=== PATIENT | female | born 1955 | race Caucasian/White ===

== ENCOUNTER 2023-09-25 16:14 | Emergency (ER) | payer BC, SELFPAY ==
[2023-09-25 16:16] VITALS: BP 157/86
--- NOTE | 2023-09-25 19:18 | ED.GENMED ---
Addendum entered and electronically signed by GAEL Muhammad 09/26/23 13:17:
Patient called in the prescription for oxycodone is not able to be filled at the current [facility] because they are not in stock, they recommend that you prescription be sent to [facility] in [place]. This medication was sent to [facility] as requested.
Original Note:
History of Present Illness
General
Chief Complaint: Back Pain
Source: patient
Exam Limitations: none
Time Seen by Provider: 09/25/23 18:54
Nursing documentation reviewed up to this point in time: agreed with
History of Present Illness
History of Present Illness:
Patient is a 68-year-old female who presents to the ER complaining of pain from her right back back into her right leg. She reports it started about a week ago but got very severe on Friday several days ago. She did see a nurse practitioner at
[facility] and was diagnosed with arthritis and likely a pinched nerve. She is scheduled for MRI on Friday, in 5 days. She was prescribed a steroid Dosepak for several days and believes they are 4 mg each. She took 2 of them today. She is also
taking gabapentin(100mg) and also taking ibuprofen. She has been taking her friend's tramadol which is not relieving her symptoms.
Pain is worse with standing on her right leg. She denies any injury. Denies any actual back pain. She denies any loss of bowel or bladder denies any weakness in the leg.
Review of Systems
Review of Systems
Allergies reviewed?: Yes
All Other Systems: ROS reviewed and negative except as documented in HPI and ROS
Constitutional: Reports no symptoms
Respiratory: Reports no symptoms
Cardiac: Reports no symptoms
ABD/GI: Reports no symptoms
Skin: Reports no symptoms
Neurological: Reports other ('shooting pain to right leg ' )
Psychiatric: Reports no symptoms
Phy Exam
General Physical Exam
General Presentation: no apparent distress
General age: appears stated age
General Skin: warm and dry
General Habitus: normal
General Mental: alert
General Hydration: appears well hydrated
Neurological Exam
Neurological Exam: alert, oriented x3, no motor deficits, no sensory deficits and other (Intact sensation to bilateral lower extremities normal sensation to right lower extremities normal dorsiflexion plantarflexion normal patellar reflexes
bilaterally)
Musculoskeletal Exam
Musculoskeletal Exam: other (No bony back tenderness)
Skin Exam
Skin Exam: normal color and warm/dry
Psychiatric Exam
Psychiatric Exam: normal mood/affect
Course
Orders/Labs/Results
Orders:
Orders
09/25/23 19:18
Dexamethasone Sod Phosphate [Decadron] 10 mg IM NOW STA
HYDROmorphone [Dilaudid] 1 mg IM NOW STA
Vital Signs
Initial and Last Documented VS:
Initial Vital Signs
Pulse Resp BP Pulse Ox
84 16 157/86 97
09/25/23 16:16 09/25/23 16:16 09/25/23 16:16 09/25/23 16:16
Last Documented Vital Signs
Temp Pulse Resp BP Pulse Ox
98.4 F 84 16 157/86 97
09/25/23 16:20 09/25/23 16:16 09/25/23 16:16 09/25/23 16:16 09/25/23 16:16
MDM/Problems Addressed
Differential Diagnosis Includes:
Not limited to sciatica
MDM/Problems Addressed:
Symptoms are consistent with sciatica. Patient was on very low-dose Medrol Dosepak for steroids without relief. Patient was given IM narcotic along with IM Decadron here in the ER feeling much better able to stand and bear weight on leg. She is
in no acute distress has a normal neurologic exam. Will DC with a stronger prescription of prednisone she is on gabapentin only 100 mg and does not feel any relief will give a stronger dose in addition only to take as needed a stronger prescription
for pain was sent to patient's pharmacy. She is getting an MRI in the next several days and does have outpatient Ortho follow-up with Bob.
*Critical Care Note
Total Time (30-74mins, 75-104mins- exclusive of procedures): Not Applicable
ED Attending Note
-
Portions of this chart may have been created with voice recognition software.� Occasional wrong word or��sound alike� substitutions may have occurred due to the inherent limitations of voice recognition software.
Discharge Plan
Departure
Patient Disposition: Home (Routine Discharge)
Date of Disposition: 09/25/23
Time of Disposition: 20:32
Patient with high blood pressure during this ER visit?: Yes
Condition: Fair
Covid-19: Not Applicable
Discharge Problem:
Sciatica
Instructions: Sciatica (DC), BLOOD PRESSURE
Prescriptions:
New
prednisone 10 mg Tablet
See Rx Instructions .ROUTE .COMPLEX Qty: 45 0RF
Rx Instructions:
Take By Mouth:
50 mg daily x3 days, 40 mg daily x3 days,
30 mg daily x3 days, 20 mg daily x3 days,
10 mg daily x3 days
gabapentin 300 mg capsule
300 mg PO TID PRN (Reason: pain) Qty: 14 0RF
oxycodone 5 mg capsule
5 mg PO Q6H PRN (Reason: Pain) Qty: 10 0RF
Referrals:
Eileen Cadena, DO [Family Provider] -
Activity Restrictions/Additional Instructions:
As discussed you were given a narcotic injection here in the ER along with prednisone(steroid) Stop your previous steroid prescription and start new steroid prescription tomorrow. You may take Tylenol for discomfort. A new prescription for
gabapentin 300 mg was sent to your pharmacy you may take only as needed. if needed only, a prescription for narcotics was sent to your pharmacy take only as directed. Narcotics will make you drowsy no driving or drug alcohol taking the medication.
In addition narcotics may make you constipated it is recommended they take [id number] stool softener. Follow-up with your orthopedic physician as scheduled and be sure to get your MRI as scheduled return to the ER if any worsening of symptoms
including worsening pain loss of bowel or bladder weakness lower extremities or any further concerns.
Interventions
Interventions:
*Risk Screen - Suicide Last Done: 09/25/23 18:37
*General Assessment Last Done: 09/25/23 16:16
*Neglect/Abuse Screening Last Done: 09/25/23 18:37
*ED COVID-19 Vaccine History Last Done: 09/25/23 16:16
ED-Musculoskeletal Assessment Last Done: 09/25/23 18:00
Discharge Date and Time
Print Language: CYMRO
[2023-09-25] MEDS: DILAUDID 1 MG IM (19:31)
[2023-09-25] MEDS: DECADRON 10 MG IM (19:34)
== END 2023-09-25 20:59 | disposition home or self-care (01) ==
LOC: EMR 16:14
PROVIDERS: EMERGENCY PHYSICIAN Emergency Medicine; FAMILY PHYSICIAN Family Medicine
DX: M54.41 Lumbago with sciatica, right side (principal); M79.604 Pain in right leg; R03.0 Elevated blood-pressure reading, without diagnosis of hypertension; M19.90 Unspecified osteoarthritis, unspecified site
CPT/HCPCS: 99284; 96372 ×2

== ENCOUNTER → 2023-12-09 13:44 | Outpatient (REF) | payer BC, SELFPAY | LOC: HWRAD 13:44 | PROVIDERS: ATTENDING PHYSICIAN Family Medicine | DX: M85.80 Other specified disorders of bone density and structure, unspecified site (principal) | CPT/HCPCS: 77080 ==

== ENCOUNTER 2024-04-06 16:55 | Emergency (ER) | payer BC, SELFPAY ==
[2024-04-06 16:57] VITALS: BP 162/88
[2024-04-06 17:00] VITALS: BP 162/88
[2024-04-06 17:04] VITALS: BMI 27.2
[2024-04-06 17:18] LABS: % Basophils 1.2 % (0-2); % Eosinophils 2.3 % (0-6); % Immature Granulocytes 0.2 % (0-0.5); % Lymphocytes 42.2 % (20.5-51.1); % Monocytes 8.7 % (1.7-9.3); % Neutrophils 45.4 % (42.2-75.2); Absolute Basophils 0.1 10^3/uL (0-0.2); Absolute Eosinophils 0.2 10^3/uL (0-0.7); Absolute Lymphocytes 2.7 10^3/uL (1.2-3.4); Absolute Monocytes 0.6 10^3/uL (0.1-0.6); Absolute Neutrophils 2.9 10^3/uL (1.4-6.5); Hematocrit 39.7 % (37.0-47.0); Hemoglobin 13.5 g/dL (12.0-16.0); Mean Corpuscular Hgb 28.5 pg (27.0-31.0); Mean Corpuscular Volume 83.9 fL (81.0-99.0); Mean Platelet Volume 9.4 fL (7.4-10.4); Nucleated Red Blood Cells % 0 %; Platelet Count 307 10^3/uL (130-400); Red Blood Cell Count 4.73 10^6/uL (4.20-5.40); Red Cell Dist. Width 13.3 % (11.5-14.5); White Blood Cell Count 6.5 10^3/uL (4.8-10.8)
[2024-04-06 18:00] VITALS: BP 132/68
[2024-04-06 18:02] LABS: ALT (SGPT) 23 U/L (0-35); AST (SGOT) 25 U/L (14-36); Albumin 4.5 g/dl (3.5-5.0); Alkaline Phosphatase 80 U/L (38-126); Blood Urea Nitrogen 19 mg/dl (7-17); Calcium 9.7 mg/dl (8.4-10.2); Carbon Dioxide 28 mmol/L (22-30); Chloride 99 mmol/L (98-107); Estimated Creatinine Clearance 54 ml/min; Glucose 104 mg/dl (70-99); Potassium 3.7 mmol/L (3.5-5.1); Sodium 131 mmol/L (135-145); Total Bilirubin 1.1 mg/dl (0.2-1.3); Total Protein 6.5 g/dl (6.3-8.2); eGFR > 60.00
--- NOTE | 2024-04-06 19:05 | ED.GENMED ---
History of Present Illness
General
Chief Complaint: Heart Rate Problem
Source: patient
Exam Limitations: none
Time Seen by Provider: 04/06/24 17:47
Nursing documentation reviewed up to this point in time: agreed with
History of Present Illness
History of Present Illness:
69-year-old female presenting to the emergency department today with concerns of palpitations started when sitting down at home. She placed her watch on and noticed that her heart rate was fluctuating between 130s to 150s lasted roughly 45 minutes
called EMS when her symptoms seem to improve heart rate then in the 80s. Was given some fluids en route via EMS. Otherwise feels well at this point no chest pain or shortness of breath. Did have a very brief episode of chest discomfort 1 week ago
described as achiness with some nausea associated. She claims that she has been very stressed recently denies any recent trauma surgery immobilization any known history of heart disease or arrhythmias.
Review of Systems
Review of Systems
Allergies reviewed?: Yes
All Other Systems: ROS reviewed and negative except as documented in HPI and ROS
Phy Exam
Physical Exam
Physical Exam:
GENERAL: Alert , in no apparent distress
EYE: pupils equal and reactive
NECK: Supple, no significant adenopathy.
ENT: o/p clr, mmm.
CARDIAC: Regular rate and rhythm .
LUNGS: Clear breath sounds bilaterally, no acute respiratory distress, no wheezes/rales/rhonchi
ABDOMEN: Soft, without focal tenderness, no r/g, no cvat
NEUROLOGICAL: Alert and oriented, no focal neuro deficits
SKIN: Warm and dry, skin intact.
MUSCULOSKELETAL: No edema, well perfused.
PSYCH: Normal and appropriate interaction.
Course
Orders/Labs/Results
Orders:
Orders
04/06/24 17:06
Complete Blood Count/With Diff Urgent
04/06/24 17:30
Comprehensive Metabolic Panel Urgent
04/06/24 17:48
EKG [Electrocardiogram (*1)] Urgent
Reason for Study: Palpitations
EKG- Treatment ONCE
04/06/24 18:59
Chest [CR Chest - 2 Views ] Urgent
Comment:
Reason For Exam: cp
04/06/24 19:55
Troponin I Urgent
Abnormal Lab Results
04/06/24
17:30
Sodium 131 L mmol/L
(135-145)
BUN 19 H mg/dl
(7-17)
Glucose 104 H mg/dl
(70-99)
04/06/24 17:06
04/06/24 17:30
Vital Signs
Initial and Last Documented VS:
Initial Vital Signs
Temp Pulse Resp BP Pulse Ox
98.2 F 85 12 162/88 100
04/06/24 16:57 04/06/24 16:57 04/06/24 16:57 04/06/24 16:57 04/06/24 16:57
Last Documented Vital Signs
Temp Pulse Resp BP Pulse Ox
98.2 F 73 17 139/80 96
04/06/24 16:57 04/06/24 20:15 04/06/24 20:15 04/06/24 20:00 04/06/24 18:00
MDM/Problems Addressed
MDM/Problems Addressed:
69-year-old female presenting to the emergency department today with concerns of palpitations prior to arrival. Initial heart rate in the 130s to 150s according to her watch. Heart rate currently in the 70s to 80s normal sinus rhythm no emergent
findings. Labs unremarkable other than slightly low sodium level. BUN to creatinine ratio slightly elevated. No additional acute abnormalities. Otherwise stable for outpatient follow-up on the monitor here for multiple hours without any
arrhythmia. Advised for close cardiology follow-up. Return precautions given.
*Critical Care Note
Total Time (30-74mins, 75-104mins- exclusive of procedures): Not Applicable
ED Attending Note
-
Portions of this chart may have been created with voice recognition software.� Occasional wrong word or��sound alike� substitutions may have occurred due to the inherent limitations of voice recognition software.
Discharge Plan
Departure
Patient Disposition: Home (Routine Discharge)
Date of Disposition: 04/06/24
Time of Disposition: 21:01
Patient with high blood pressure during this ER visit?: No
Condition: Good
Covid-19: Not Applicable
Discharge Problem:
Palpitations
Instructions: Chest Pain CBC Follow Up
Prescriptions:
No Action
prednisone 10 mg Tablet
See Rx Instructions .ROUTE .COMPLEX Qty: 45 0RF
Rx Instructions:
Take By Mouth:
50 mg daily x3 days, 40 mg daily x3 days,
30 mg daily x3 days, 20 mg daily x3 days,
10 mg daily x3 days
gabapentin 300 mg capsule
300 mg PO TID PRN (Reason: pain) Qty: 14 0RF
oxycodone 5 mg capsule
5 mg PO Q6H PRN (Reason: Pain) Qty: 10 0RF
oxycodone 5 mg capsule
5 mg PO TID PRN (Reason: Pain) Qty: 10 0RF
Referrals:
Eileen Cadena, DO [Family Provider] -
Activity Restrictions/Additional Instructions:
You came to the emergency department today with concerns of palpitations. Here you had a reassuring assessment. Please follow closely with parts salesperson. Return to the emergency department for any worsening, new or concerning symptoms.
Interventions
Interventions:
*Risk Screen - Suicide Last Done: 04/06/24 17:05
*General Assessment Last Done: 04/06/24 17:05
*Neglect/Abuse Screening Last Done: 04/06/24 17:05
ED- Fall Risk Assessment Last Done: 04/06/24 17:08
*ED COVID-19 Vaccine History Last Done: 04/06/24 17:05
ED- Cardiac Assessment Last Done: 04/06/24 17:08
ED- Pulmonary Assessment Last Done: 04/06/24 17:08
Discharge Date and Time
Print Language: YI
[2024-04-06 20:00] VITALS: BP 139/80
[2024-04-06 20:31] LABS: Troponin I < 0.012 ng/ml
== END 2024-04-06 21:40 | disposition home or self-care (01) ==
LOC: EMR 16:55
PROVIDERS: EMERGENCY PHYSICIAN Emergency Medicine; FAMILY PHYSICIAN Family Medicine
DX: R00.2 Palpitations (principal)
CPT/HCPCS: 99285; 71046; 80053; 84484; 85025; 93005

== ENCOUNTER → 2024-04-21 14:24 | Outpatient (REF) | payer BC, SELFPAY | LOC: RCS 14:24 | PROVIDERS: ATTENDING PHYSICIAN Internal Medicine Cardiovascular Disease; FAMILY PHYSICIAN Family Medicine | DX: I10 Essential (primary) hypertension (principal); R00.2 Palpitations; R55 Syncope and collapse | CPT/HCPCS: 93306 ==

== ENCOUNTER 2024-05-12 20:15 | Emergency (ER) | payer BC, SELFPAY ==
[2024-05-12 20:39] VITALS: BP 173/96
[2024-05-12 20:52] VITALS: BP 170/101; BMI 25.8
--- NOTE | 2024-05-12 20:52 | EDRN ---
Pt was here 2/ for rapid HR. Pt was recommended to see custom home installer. Pt had an echo done and holter monitor x 1 week. Pt informed she has a weak valve, Pt instructed to start taking metoprolol 25mg daily. 1 week later, pt did not feel any
different, called the office and was informed she was taking a mild beta sasha 'and that's it.' Pt says this is second time she has noted elevated HR, felt little lightheaded. This time, pt was nauseous, in bed then her chest started pounding 'I
wasn't doing anything.' Pt had 1.5 cups coffee this morning. Pt works out, was recommended to use compression socks. Today is first time she did that which is only different thing she has done. No recent travel, hx blood clots.
[2024-05-12 21:00] VITALS: BP 130/79
[2024-05-12 21:18] LABS: % Basophils 0.8 % (0-2); % Eosinophils 1.5 % (0-6); % Immature Granulocytes 0.3 % (0-0.5); % Lymphocytes 33.9 % (20.5-51.1); % Monocytes 7.2 % (1.7-9.3); % Neutrophils 56.3 % (42.2-75.2); Absolute Basophils 0.1 10^3/uL (0-0.2); Absolute Eosinophils 0.1 10^3/uL (0-0.7); Absolute Lymphocytes 2.4 10^3/uL (1.2-3.4); Absolute Monocytes 0.5 10^3/uL (0.1-0.6); Hemoglobin 14.2 g/dL (12.0-16.0); Mean Corp Hgb Conc. 34.6 g/dL (33.0-37.0); Mean Corpuscular Hgb 28.8 pg (27.0-31.0); Mean Corpuscular Volume 83.2 fL (81.0-99.0); Mean Platelet Volume 9.1 fL (7.4-10.4); Nucleated Red Blood Cells % 0 %; Platelet Count 346 10^3/uL (130-400); Red Blood Cell Count 4.93 10^6/uL (4.20-5.40); Red Cell Dist. Width 13.6 % (11.5-14.5); White Blood Cell Count 7.1 10^3/uL (4.8-10.8)
[2024-05-12 21:43] LABS: Blood Urea Nitrogen 21 mg/dl (7-17); Calcium 10.2 mg/dl (8.4-10.2); Carbon Dioxide 23 mmol/L (22-30); Chloride 101 mmol/L (98-107); Estimated Creatinine Clearance 53 ml/min; Glucose 112 mg/dl (70-99); Sodium 135 mmol/L (135-145); eGFR > 60.00
[2024-05-12 22:00] VITALS: BP 129/78
[2024-05-12 22:04] LABS: TSH Reflex To Free T4 3.29 uIU/ml (0.47-4.68)
--- NOTE | 2024-05-12 22:46 | ED.GENMED ---
History of Present Illness
General
Chief Complaint: Heart Rate Problem
Source: patient and family
Time Seen by Provider: 05/12/24 20:51
History of Present Illness
History of Present Illness:
69-year-old female who presents after she developed palpitations at home. Patient states she was not doing anything in particular started feel palpitations. The patient states that this is the second time this has happened. She has seen
cardiology who did an outpatient echocardiogram and Holter monitor. The patient was then advised to start metoprolol which she did and follow-up in several months. Patient denies any chest pain. She does feel slightly improved on my assessment.
No recent travel. No leg swelling. No leg pain.
Past History
Past History
ED Past Medical History: None
Phy Exam
Physical Exam
Physical Exam:
CONSTITUTIONAL Patient alert and oriented to person, place and time. Well-appearing. Vital signs reviewed.
HEAD atraumatic, normocephalic.
EYES eyelids normal to inspection, Extraocular muscles intact, Conjunctiva normal, Sclera normal.
NECK normal range of motion, Trachea midline, no jugular venous distention.
RESPIRATORY CHEST No respiratory distress noted, Chest expansion equal, Bilateral breath sounds clear.
CARDIOVASCULAR regular rate and rhythm, Heart sounds normal.
ABDOMEN abdomen nontender, Bowel sounds normal. No distention.
BACK normal inspection, no obvious deformities
UPPER EXTREMITY range of motion normal, Motor strength normal, no cyanosis, no edema.
LOWER EXTREMITY range of motion normal, Motor strength normal, no cyanosis, no edema.
NEURO Speech normal, No focal motor deficits, Irene coma scale 15, Memory normal, Cranial Nerves intact to screening exam.
SKIN skin warm, dry, and normal in color.
Course
Orders/Labs/Results
Orders:
Orders
05/12/24 20:16
ECG [Electrocardiogram (*1)] Urgent
Reason for Study: Palpitations
EKG- Treatment ONCE
05/12/24 20:59
EKG [Electrocardiogram (*1)] Urgent
Reason for Study: Bradycardia / Tachycardia
EKG- Treatment ONCE
05/12/24 21:13
Basic Metabolic Panel Urgent
Complete Blood Count/With Diff Urgent
TSH Reflex To Free T4 Urgent
05/12/24 22:33
Potassium Urgent
Abnormal Lab Results
05/12/24
21:13
BUN 21 H mg/dl
(7-17)
Glucose 112 H mg/dl
(70-99)
05/12/24 21:13
Vital Signs
Initial and Last Documented VS:
Initial Vital Signs
Temp Pulse Resp BP Pulse Ox
98.3 F 144 18 173/96 99
05/12/24 20:39 05/12/24 20:39 05/12/24 20:39 05/12/24 20:39 05/12/24 20:39
Last Documented Vital Signs
Temp Pulse Resp BP Pulse Ox
98.3 F 77 18 129/78 99
05/12/24 20:39 05/12/24 22:00 05/12/24 22:00 05/12/24 22:00 05/12/24 21:00
MDM/Problems Addressed
MDM/Problems Addressed:
Palpitations, atrial tachycardia
*Pulse Oximetry
Patient hypoxic: no
*EKG
Interpreted by ED Provider?: Yes
Interpretation: abnormal
Rate: tachycardiac
Rhythm: other (Atrial tachycardia versus a flutter 2-1)
Ischemia: non-specific ST changes
*Assessment Counselor Interpretation
Rate: normal
Interpretation: normal
Rhythm: sinus
*Critical Care Note
Total Time (30-74mins, 75-104mins- exclusive of procedures): Not Applicable
Data Reviewed
Source: patient
Prescriptions/Medications Considered But Not Given:
Considered AV blockers but patient's heart rate was 80-90 on my assessment
Patient Management
Escalation/DeEscalation of care consider admission/obs:
Patient appears well feels better. Heart rate has been 80-90 on telemetry. EKG noted. Question atrial tachycardia. Will recommend outpatient follow-up with cardiology and continue metoprolol
ED Attending Note
-
Portions of this chart may have been created with voice recognition software.� Occasional wrong word or��sound alike� substitutions may have occurred due to the inherent limitations of voice recognition software.
Discharge Plan
Departure
Patient Disposition: Home (Routine Discharge)
Date of Disposition: 05/12/24
Time of Disposition: 22:50
Patient with high blood pressure during this ER visit?: No
Discharge Problem:
Palpitations
Instructions: Palpitations (DC)
Prescriptions:
No Action
metoprolol succinate 25 mg Tablet Extended Release 24 Hr
25 mg PO DAILY
Green Drink With Vitamins
1 PO DAILY
Rx Instructions:
1 scoop in 8 oz water
Seed
2 cap PO DAILY
collagen
1 PO DAILY
Rx Instructions:
1 scoop in 8 oz
Referrals:
Eileen Cadena, DO [Family Provider] -
Activity Restrictions/Additional Instructions:
Please follow-up with cardiology as planned. Return immediately for chest pain, shortness of breath, weakness of any kind or any other concerns. Please continue your metoprolol
Interventions
Interventions:
*Risk Screen - Suicide Last Done: 05/12/24 20:39
*General Assessment Last Done: 05/12/24 20:39
*Neglect/Abuse Screening Last Done: 05/12/24 20:39
*ED- Fall Risk Assessment Last Done: 05/12/24 22:35
*ED COVID-19 Vaccine History Last Done: 05/12/24 20:39
ED- Cardiac Assessment Last Done: 05/12/24 21:19
ED- Pulmonary Assessment Last Done: 05/12/24 21:19
Discharge Date and Time
Print Language: MONGOLIAN
[2024-05-12 22:52] LABS: Potassium 3.9 mmol/L (3.5-5.1)
== END 2024-05-12 23:05 | disposition home or self-care (01) ==
LOC: EMR 20:15
PROVIDERS: EMERGENCY PHYSICIAN Emergency Medicine; FAMILY PHYSICIAN Family Medicine
DX: R00.2 Palpitations (principal); I47.19 Other supraventricular tachycardia
CPT/HCPCS: 99283; 80048; 84132; 84443; 85025; 93005

== ENCOUNTER 2024-12-16 08:05 | Day surgery (SDC) | payer BC, SELFPAY ==
[2024-12-02 10:58] VITALS: BMI 24.5
[2024-12-02 11:18] LABS: Hematocrit 40.6 % (37.0-47.0); Hemoglobin 13.6 g/dL (12.0-16.0); Mean Corp Hgb Conc. 33.5 g/dL (33.0-37.0); Mean Corpuscular Volume 84.2 fL (81.0-99.0); Nucleated Red Blood Cells % 0 %; Platelet Count 324 10^3/uL (130-400); Red Cell Dist. Width 13.1 % (11.5-14.5)
[2024-12-02 11:39] LABS: INR 1.03; PT 14.0 Sec (11.4-14.6)
[2024-12-02 11:57] LABS: ALT (SGPT) 21 U/L (0-35); AST (SGOT) 24 U/L (14-36); Albumin 4.5 g/dl (3.5-5.0); Alkaline Phosphatase 69 U/L (38-126); Blood Urea Nitrogen 13 mg/dl (7-17); Calcium 9.4 mg/dl (8.4-10.2); Carbon Dioxide 28 mmol/L (22-30); Chloride 100 mmol/L (98-107); Estimated Creatinine Clearance 56 ml/min; Glucose 99 mg/dl (70-99); Magnesium 2.0 mg/dl (1.6-2.3); Potassium 4.3 mmol/L (3.5-5.1); Sodium 133 mmol/L (135-145); Total Protein 7.2 g/dl (6.3-8.2); eGFR > 60.00
[2024-12-16] VITALS (21 sets, daily range): BP systolic 107–155; BP diastolic 61–88; BMI 24.1
[2024-12-16 11:08] LABS: ACT-LR - POC 268 Seconds (116-155)
[2024-12-16 11:31] LABS: ACT-LR - POC 314 Seconds (116-155)
--- NOTE | 2024-12-16 12:04 | ITS.CL.ABL ---
[employer] - Ablation
Ablation
Procedure Report:
ELECTROPHYSIOLOGY ABLATION STUDY
DATE:: 12/16/2024�����������������������������REFERRING: Dr. Tony Powell, Dr. Dontrell Ware
INDICATION: Paroxysmal supraventricular tachycardia in the form of atrial fibrillation.� Also noted to have paroxysmal atrial tachycardia with ECG morphology suggesting typical atrial flutter. The P wave is somewhat broad and could be focal with
morphology near the CTI.
HISTORY: See H and P.��As above
ANTIARRHYTHMIC DRUG: Metoprolol
PRE-PROCEDURE RADHA: No atrial thrombus
PRESENTING RHYTHM: Sinus rhythm
'TIME-OUT':��called and confirmed.
SEDATION/ANESTHESIA:��provided via the anesthesia department using general anesthesia (LMA).
INTRAVENOUS/ARTERIAL ACCESS:
Right femoral venous - 8Fr
Left femoral venous - 8 Fr, 6 Fr
Ultrasound guidance for bilateral femoral vein access was utilized by me to obtain access with demonstration of normal anatomy
CHADS-VASC Score:
HAS-Bled Score
PROCEDURE:
1.��A decapolar CS catheter was placed within the CS for mapping and pacing.��This was also used as the reference catheter for the 3-D map. We proceeded to the PVI and posterior wall isolation first and performed empiric CTI flutter ablation with
radiofrequency energy at the annulus and PFA from the mid CTI back to the IVC as below. 100 mcg of nitroglycerin were given during the CTI ablation. We then performed aggressive EP study with stimulation and the patient was noninducible for any
other tachyarrhythmias. The CTI flutter ablation was performed somewhat septally given the patient's P wave morphology. There was no change in AV conduction.
2. The intracardiac ultrasound catheter was positioned in the RA to identify the FO for targeting of transseptal puncture, assist��in identification of the pulmonary vein ostia, monitoring pre and post ablation pulmonary vein flow velocities,
monitoring for 'bubble' formation during RF application as a sign of thermal injury,��and to monitor for pericardial effusion during mapping and ablation procedure.���Left atrial size, LV ejection fraction, and pulmonary vein flows were monitored
pre and post ablation procedure. The other valves were inspected and found to be free of significant regurgitation or stenosis.
3.��Half of the calculated heparin bolus was administered prior to the first transeptal puncture.��Transseptal puncture was performed to diagnose RA and LA pressure so that safety of LA mapping and ablation could be further assessed, and to access
the left atrium and pulmonary veins for mapping and ablation.��This entailed advancing an 10 Hebrew steerable with dilator into the superior vena cava and withdrawing both (monitoring intracardiac ultrasound, fluoroscopy and tip pressure) with the
tip oriented toward the atrial septum.��The fossa ovalis was engaged (indicated by sudden displacement of the sheath tip as well as tenting of the fossa seen on intracardiac ultrasound).��Left atrial access required a pass with the [place]rough
needle extended.��Left atrial catheter position was confirmed by pressure monitoring (RA mean pressure 1 mm Hg and LA mean presure 4 mm Hg) which was answered with a liter of hydration, LA saturation (99%),��as well as fluoroscopy.��The sheath was
advanced over the dilator and positioned in the left atrium.��This procedure was repeated for the Agilis sheath.��The remainder of the calculated heparin bolus was administered and heparin was
infused to maintain ACT at 300 -350 seconds throughout the case.
4.��RA pacing was performed via the proximal decapolar poles and LA pacing was performed via the distal decapolr poles.
5. A quadrapolar catheter was first positioned at the His position for His Bundle recording which was tagged via the 3-D Navex sytem, and then passed to the RVA for RV pacing and recording.
6. The lattice catheter was placed in each of the LIPV, LSPV, RSPV and the RIPV.��
7.��Next, a 3-D map was created using Navex.���A 3-D reconstructed CT image was compared to the 3-D Navex map to assist in anatomic interpretation, mapping and ablation.��The CT image and the NavX image were fused.
8. PVI was performed with wide circumferential lesions around the left and right veins rendering entrance and exit block in all 4 pulmonary veins. A posterior box lesion set with a roofline and floor line was performed connecting the left and
right vein lesion sets with additional lesions on the septum and the base of left atrial appendage on the appendage side of the ligament of Adrián. This rendered the posterior wall roof floor left atrium and pulmonary veins isolated with entrance
and exit block.
9. An RF line was also placed at the IVC-TVA isthmus to interrupt the potential typical atrial flutter circuit.��At the end of RF at this site, pacing from the lateral side of the line and the medial side of the line was performed to evaluate for
bidirectional block with intra isthmus conduction time of 142 ms. Given the P wave morphology on the patient's supraventricular tach arrhythmia suggesting either typical atrial flutter or a focal atrial tachycardia from near isthmus we performed
CTI flutter ablation from the tricuspid annulus back towards the IVC more towards the septal aspect of the eustachian ridge with an RF lesion at the annulus and IV nitroglycerin with PFA lesions connecting the RF lesion back towards the IVC with
bidirectional block. Then aggressive burst pacing down to the left and right atrial refractoriness plus atrial extrastimuli could not induce any other atrial tachyarrhythmia.
TOTAL FLOURO TIME: 12.1 minutes
TOTAL RF DURATION: 1 minutes
REVERSAL OF HEPARIN: 35 mg of protamine, slow IV administration
COMPLICATIONS:
None
Intracardiac US shows no pericardial effusion post ablation.
SUMMARY:��
Complex left atrial mapping and ablation.
Isolation of all 4 pulmonary veins as above, isolation of the left atrial posterior wall, CTI flutter ablation with bidirectional block performed on the septal aspect of the isthmus. Noninducible for additional arrhythmia after these lesion sets.
RECOMMENDATIONS:
1. Ambulate in 4 hours
2. Resume anticoagulation
3.��Consider same-day discharge
4.��Lower metoprolol to 50 mg nightly
Copy to: Dr. Abdirizak Benítez, Dr. Long Ware
[2024-12-16] MEDS: ANESTHETIC LOZENGE 1 LOZENGE PO (12:38)
--- NOTE | 2024-12-16 15:33 | W.PN.UPDATE ---
Update Note
Progress Note Update
69 yo WF s/p PVI (Same day). She denies cp, sob, mild sore throat, imelda clears, EKG SR, b/l groins c/d/i, soft. She will resume Eliquis tonight and decrease metoprolol to 50mg hs. Activity restrictions reviewed. She will f/u Dr. Benítez in 3 mo. She
is for d/c home after 430p if groins stable.
== END 2024-12-16 16:40 | disposition home or self-care (01) ==
LOC: CATH 08:05
PROVIDERS: ATTENDING PHYSICIAN Internal Medicine Cardiovascular Disease; FAMILY PHYSICIAN Family Medicine
DX: I48.0 Paroxysmal atrial fibrillation (principal); I47.19 Other supraventricular tachycardia; R53.83 Other fatigue; R00.2 Palpitations; R42 Dizziness and giddiness; I10 Essential (primary) hypertension; M85.80 Other specified disorders of bone density and structure, unspecified site; Z87.891 Personal history of nicotine dependence; E04.2 Nontoxic multinodular goiter; I48.3 Typical atrial flutter; Z79.01 Long term (current) use of anticoagulants; Z79.899 Other long term (current) drug therapy
CPT/HCPCS: C1894; C1730; C1733; C1766; C1759; 36415; 75572; 80053; 83735; 85025; 85347; 85610; 86850; 86900; 86901; 93005; 93655; 93656; 93657; Q9967